=== PATIENT | female | born 1940 | race Caucasian/White ===

== ENCOUNTER 2017-06-22 17:55 | Emergency (ER) | payer OTHER ==
[~2017-06-22] VITALS: Ht 162.6 cm; Wt 54.4 kg
[~2017-06-22 17:55] MED LIST: ACET325 PO; ALBU.083IS; ALBU3IS INH; ALBU90OI61 INH; AMLO10 PO; ASPI81CH PO; ATOR10; AZIT250 PO; AZIT500 PO; Amlodipine Besy10 MG PO; BUDE.5 INH; BUDE200IP INH; CARV6.25 PO; CHOL10002 PO; CIME400; CLOP75 PO; Cardizem CD 24240 MG PO; Cipro500 MG PO; DELTASONE20 MG PO; DILT180; DOXA1; FLUSAL2505; FLUSAL2505 IH; FLUT1DIS5 INH; FURO20; FURO20 PO; IBUP600 PO; IBUP800; IPRAIS; Ipratr-Albuterol3 ML INH; LEVFLO500 PO; LISI20; LISI20 PO; LISI5; LISI5 PO; Lisinopril2.5 MG PO; Lovastatin20 MG PO; META800 PO; METF500C; METH5; METO25ER; METO50ER; METO50ER PO; NAPR500; NEBULIZ; NICO21TP; OXYACE5T; OXYC40ER; OXYC40ER PO; OXYC5 PO; PANT40 PO; POTA10T PO; POTA8 PO; POTCHL10ER; POTCHL10ER PO; PRED10 PO; PRED20 PO; PROACE100; Pedi-Dri 100,0060 GM TOP; Prinivil10 MG PO; SERT100; SERT100 PO; SERT25; SIMV10 PO; TRAM50 PO; VALD20 PO; VITAMIN D50000 UNIT PO; Ventolin5 MG/1 ML IH; Ventolin5 MG/1 ML INH; Zofran Odt4 MG SL
[2017-06-22 18:30] LABS: BASOPHILS ABSOLUTE AUTO 0.02 K/mm3 (0.00-0.23); BASOPHILS PERCENT AUTO 0 % (0-2); EOSINOPHILS ABSOLUTE AUTO 0.26 K/mm3 (0.00-0.68); EOSINOPHILS PERCENT AUTO 3 % (0-6); Hematocrit 38.5 % (33.0-51.0); Hemoglobin 13.3 g/dL (11.5-16.0); IMMATURE GRAN ABSOLUTE AUTO 0.01 K/mm3 (0.00-0.10); IMMATURE GRAN PERCENT AUTO 0 % (0-1); LYMPHOCYTES ABSOLUTE AUTO 2.47 K/mm3 (0.84-5.20); LYMPHOCYTES PERCENT AUTO 29 % (21-46); MONOCYTES ABSOLUTE AUTO 0.76 K/mm3 (0.16-1.47); MONOCYTES PERCENT AUTO 9 % (4-13); Mean Corpuscular HGB 29.2 pg (26.0-34.0); Mean Corpuscular HGB Conc 34.5 g/dL (31.5-36.5); Mean Corpuscular Volume 85 fL (80-100); Mean Platelet Volume 9.1 fL (9.1-12.4); NEUTROPHILS ABSOLUTE AUTO 5.14 K/mm3 (1.96-9.15); NEUTROPHILS PERCENT AUTO 59 % (41-73); Platelet Count 286 K/mm3 (150-400); RDW Coefficient Variation 13.9 % (11.7-14.2); RDW Standard Deviation 42.7 fL (35.1-46.3); Red Blood Cell Count 4.55 M/mm3 (3.80-5.20); White Blood Cell Count 8.66 K/mm3 (4.00-11.30)
[2017-06-22 18:45] LABS: International Normalized Ratio 1.03; Prothrombin Time Results 10.7 Sec (9.7-11.5)
[2017-06-22 18:50] LABS: Alanine Aminotransfer (ALT/SGP 13 U/L (12-78); Albumin, Blood 2.8 g/dL (3.4-5.0); Albumin/Globulin Ratio 0.7 (0.8-1.8); Alk Phos 91 U/L (50-136); Anion Gap 7 mmol/L (6-16); Aspartate Aminotrans (AST/SGOT 12 U/L (12-37); Bilirubin, Total 0.4 mg/dL (0.1-1.0); Blood Urea Nitrogen 11 mg/dL (8-24); Bun/Creatinine Ratio 25.2 (12.0-20.0); CO2, Blood 27 mmol/L (21-32); Calcium, Blood 8.8 mg/dL (8.5-10.1); Chloride, Blood 99 mmol/L (98-108); Creatinine, Blood 0.44 mg/dL (0.40-1.00); Globulin, Blood 3.9 g/dL (2.2-4.0); Glomerular Filtration Rate >60 (60-); Glucose, Blood 121 mg/dL (70-99); Potassium, Blood 4.2 mmol/L (3.5-5.5); Sodium, Blood 133 mmol/L (136-145); Total Protein, Blood 6.7 g/dL (6.4-8.2); Troponin I <0.015 ng/mL (0.000-0.040)
[2017-06-22] MEDS ORDERED: LEVO750 PO (19:49)
[2018-05-11] MEDS ORDERED: Zithromax250 MG PO (20:26)
[2018-05-11] MEDS ORDERED: Prednisone50 MG PO (20:26)
== END 2017-06-22 20:41 | disposition home or self-care (01) ==
LOC: ER 17:55
PROVIDERS: Emergency Medicine
DX: J18.9 Pneumonia, unspecified organism (principal); Z88.0 Allergy status to penicillin; Z88.2 Allergy status to sulfonamides; Z79.899 Other long term (current) drug therapy; Z79.82 Long term (current) use of aspirin; Z79.2 Long term (current) use of antibiotics; I10 Essential (primary) hypertension; J44.9 Chronic obstructive pulmonary disease, unspecified; F17.200 Nicotine dependence, unspecified, uncomplicated
CPT/HCPCS: 71046; 80053; 83880; 84484; 85025; 85610; 85730; 93005; 93010; 94640; 96365; 96375; 99283; J1100; J1956

== ENCOUNTER 2017-06-30 15:03 | Inpatient (IN) | payer OTHER ==
[~2017-06-30] VITALS: Ht 162.6 cm; Wt 51.4 kg
[~2017-06-30 15:03] MED LIST changes: +LEVO750 PO
[2017-06-30 17:54] LABS: BASOPHILS ABSOLUTE AUTO 0.03 K/mm3 (0.00-0.23); BASOPHILS PERCENT AUTO 0 % (0-2); EOSINOPHILS ABSOLUTE AUTO 0.36 K/mm3 (0.00-0.68); EOSINOPHILS PERCENT AUTO 4 % (0-6); Hematocrit 38.9 % (33.0-51.0); Mean Corpuscular HGB 28.4 pg (26.0-34.0); Mean Corpuscular HGB Conc 33.4 g/dL (31.5-36.5); Mean Corpuscular Volume 85 fL (80-100); Mean Platelet Volume 9.3 fL (9.1-12.4); Platelet Count 297 K/mm3 (150-400); RDW Coefficient Variation 13.8 % (11.7-14.2); RDW Standard Deviation 43.2 fL (35.1-46.3); Red Blood Cell Count 4.57 M/mm3 (3.80-5.20); White Blood Cell Count 8.14 K/mm3 (4.00-11.30)
[2017-06-30 17:58] LABS: IMMATURE GRAN ABSOLUTE AUTO 0.03 K/mm3 (0.00-0.10); IMMATURE GRAN PERCENT AUTO 0 % (0-1); LYMPHOCYTES ABSOLUTE AUTO 2.78 K/mm3 (0.84-5.20); LYMPHOCYTES PERCENT AUTO 34 % (21-46); MONOCYTES PERCENT AUTO 10 % (4-13); NEUTROPHILS ABSOLUTE AUTO 4.14 K/mm3 (1.96-9.15); NEUTROPHILS PERCENT AUTO 51 % (41-73)
[2017-06-30 18:06] LABS: Alanine Aminotransfer (ALT/SGP 12 U/L (12-78); Albumin, Blood 2.9 g/dL (3.4-5.0); Albumin/Globulin Ratio 0.8 (0.8-1.8); Alk Phos 90 U/L (50-136); Anion Gap 8 mmol/L (6-16); Aspartate Aminotrans (AST/SGOT 11 U/L (12-37); Bilirubin, Total 0.4 mg/dL (0.1-1.0); Blood Urea Nitrogen 8 mg/dL (8-24); CO2, Blood 26 mmol/L (21-32); Calcium, Blood 8.8 mg/dL (8.5-10.1); Chloride, Blood 99 mmol/L (98-108); Creatinine, Blood 0.44 mg/dL (0.40-1.00); Globulin, Blood 3.8 g/dL (2.2-4.0); Glomerular Filtration Rate >60 (60-); Glucose, Blood 107 mg/dL (70-99); Potassium, Blood 3.8 mmol/L (3.5-5.5); Sodium, Blood 133 mmol/L (136-145); Total Protein, Blood 6.7 g/dL (6.4-8.2)
[2017-07-02 05:14] LABS: BASOPHILS ABSOLUTE AUTO 0.01 K/mm3 (0.00-0.23); BASOPHILS PERCENT AUTO 0 % (0-2); EOSINOPHILS PERCENT AUTO 0 % (0-6); Hematocrit 35.1 % (33.0-51.0); Hemoglobin 11.6 g/dL (11.5-16.0); IMMATURE GRAN ABSOLUTE AUTO 0.06 K/mm3 (0.00-0.10); IMMATURE GRAN PERCENT AUTO 1 % (0-1); LYMPHOCYTES ABSOLUTE AUTO 2.16 K/mm3 (0.84-5.20); LYMPHOCYTES PERCENT AUTO 17 % (21-46); MONOCYTES ABSOLUTE AUTO 0.97 K/mm3 (0.16-1.47); MONOCYTES PERCENT AUTO 8 % (4-13); Mean Corpuscular Volume 85 fL (80-100); Mean Platelet Volume 9.5 fL (9.1-12.4); NEUTROPHILS ABSOLUTE AUTO 9.45 K/mm3 (1.96-9.15); NEUTROPHILS PERCENT AUTO 75 % (41-73); Platelet Count 308 K/mm3 (150-400); RDW Coefficient Variation 13.9 % (11.7-14.2); RDW Standard Deviation 42.8 fL (35.1-46.3); Red Blood Cell Count 4.14 M/mm3 (3.80-5.20); White Blood Cell Count 12.65 K/mm3 (4.00-11.30)
[2017-07-02 05:41] LABS: Anion Gap 8 mmol/L (6-16); Blood Urea Nitrogen 19 mg/dL (8-24); Bun/Creatinine Ratio 37.3 (12.0-20.0); CO2, Blood 26 mmol/L (21-32); Calcium, Blood 8.8 mg/dL (8.5-10.1); Chloride, Blood 100 mmol/L (98-108); Creatinine, Blood 0.51 mg/dL (0.40-1.00); Glomerular Filtration Rate >60 (60-); Glucose, Blood 144 mg/dL (70-99); Potassium, Blood 4.5 mmol/L (3.5-5.5); Sodium, Blood 134 mmol/L (136-145)
[2017-07-03 06:24] LABS: BASOPHILS ABSOLUTE AUTO 0.01 K/mm3 (0.00-0.23); BASOPHILS PERCENT AUTO 0 % (0-2); EOSINOPHILS ABSOLUTE AUTO 0.01 K/mm3 (0.00-0.68); EOSINOPHILS PERCENT AUTO 0 % (0-6); Hematocrit 35.7 % (33.0-51.0); Hemoglobin 11.7 g/dL (11.5-16.0); IMMATURE GRAN ABSOLUTE AUTO 0.04 K/mm3 (0.00-0.10); IMMATURE GRAN PERCENT AUTO 0 % (0-1); LYMPHOCYTES ABSOLUTE AUTO 2.23 K/mm3 (0.84-5.20); LYMPHOCYTES PERCENT AUTO 19 % (21-46); MONOCYTES ABSOLUTE AUTO 0.69 K/mm3 (0.16-1.47); MONOCYTES PERCENT AUTO 6 % (4-13); Mean Corpuscular HGB 27.9 pg (26.0-34.0); Mean Corpuscular HGB Conc 32.8 g/dL (31.5-36.5); Mean Corpuscular Volume 85 fL (80-100); Mean Platelet Volume 9.6 fL (9.1-12.4); NEUTROPHILS ABSOLUTE AUTO 8.51 K/mm3 (1.96-9.15); NEUTROPHILS PERCENT AUTO 74 % (41-73); Platelet Count 294 K/mm3 (150-400); RDW Standard Deviation 43.5 fL (35.1-46.3); White Blood Cell Count 11.49 K/mm3 (4.00-11.30)
[2017-07-05 06:03] LABS: BASOPHILS ABSOLUTE AUTO 0.01 K/mm3 (0.00-0.23); BASOPHILS PERCENT AUTO 0 % (0-2); EOSINOPHILS ABSOLUTE AUTO 0.02 K/mm3 (0.00-0.68); EOSINOPHILS PERCENT AUTO 0 % (0-6); Hematocrit 39.3 % (33.0-51.0); IMMATURE GRAN ABSOLUTE AUTO 0.06 K/mm3 (0.00-0.10); IMMATURE GRAN PERCENT AUTO 1 % (0-1); LYMPHOCYTES ABSOLUTE AUTO 2.72 K/mm3 (0.84-5.20); LYMPHOCYTES PERCENT AUTO 24 % (21-46); MONOCYTES ABSOLUTE AUTO 0.74 K/mm3 (0.16-1.47); MONOCYTES PERCENT AUTO 7 % (4-13); Mean Corpuscular HGB 27.8 pg (26.0-34.0); Mean Corpuscular HGB Conc 33.1 g/dL (31.5-36.5); Mean Corpuscular Volume 84 fL (80-100); Mean Platelet Volume 9.4 fL (9.1-12.4); NEUTROPHILS ABSOLUTE AUTO 7.89 K/mm3 (1.96-9.15); NEUTROPHILS PERCENT AUTO 69 % (41-73); Platelet Count 327 K/mm3 (150-400); RDW Coefficient Variation 13.8 % (11.7-14.2); RDW Standard Deviation 42.6 fL (35.1-46.3); Red Blood Cell Count 4.67 M/mm3 (3.80-5.20); White Blood Cell Count 11.44 K/mm3 (4.00-11.30)
[2017-07-05 06:32] LABS: Anion Gap 9 mmol/L (6-16); Blood Urea Nitrogen 18 mg/dL (8-24); Bun/Creatinine Ratio 42.3 (12.0-20.0); CO2, Blood 25 mmol/L (21-32); Calcium, Blood 8.5 mg/dL (8.5-10.1); Chloride, Blood 97 mmol/L (98-108); Creatinine, Blood 0.43 mg/dL (0.40-1.00); Glomerular Filtration Rate >60 (60-); Glucose, Blood 94 mg/dL (70-99); Potassium, Blood 4.4 mmol/L (3.5-5.5); Sodium, Blood 131 mmol/L (136-145)
[2017-07-05] MEDS ORDERED: BUDE.5 NEB (10:56)
[2017-07-05] MEDS ORDERED: GUAIFENESIN1200 MG PO (10:56)
[2017-07-05] MEDS ORDERED: LEVO750 PO (10:59)
[2017-07-05] MEDS ORDERED: PRED20 PO (10:59)
[2017-07-05] MEDS ORDERED: DULERA 100 MCG/13 GM INH (11:00)
[2018-05-11] MEDS ORDERED: Prednisone50 MG PO (20:26)
[2018-05-11] MEDS ORDERED: Zithromax250 MG PO (20:26)
== END 2017-07-05 16:31 | disposition home or self-care (01) | DRG 189 ==
LOC: ER 15:03 → MEDS 19:50 → ENPENDDIS 07-05 10:00 → MEDS 07-05 16:31
PROVIDERS: Emergency Medicine; Hospitalist; Internal Medicine; Internal Medicine Pulmonary Disease
DX: J96.21 Acute and chronic respiratory failure with hypoxia (principal); J18.9 Pneumonia, unspecified organism; J44.0 Chronic obstructive pulmonary disease with (acute) lower respiratory infection; E87.1 Hypo-osmolality and hyponatremia; T17.990A Other foreign object in respiratory tract, part unspecified in causing asphyxiation, initial encounter; Z99.81 Dependence on supplemental oxygen; J44.1 Chronic obstructive pulmonary disease with (acute) exacerbation; J98.11 Atelectasis; J96.22 Acute and chronic respiratory failure with hypercapnia; F17.210 Nicotine dependence, cigarettes, uncomplicated; I10 Essential (primary) hypertension; E78.00 Pure hypercholesterolemia, unspecified; R73.9 Hyperglycemia, unspecified; R91.1 Solitary pulmonary nodule; Z86.73 Personal history of transient ischemic attack (TIA), and cerebral infarction without residual deficits; Z79.82 Long term (current) use of aspirin; Z79.899 Other long term (current) drug therapy; Z88.0 Allergy status to penicillin; Z88.2 Allergy status to sulfonamides
CPT/HCPCS: 36415; 71045; 71046; 71260; 80048; 80053; 82947; 83605; 84145; 85025; 87040; 87070; 87205; 94010; 94640; 94664; 94667; 94760; 94762; 96365; 98960; 99285; 99407; J0696; J1650; J1956; J7030; J7120; Q9967

== ENCOUNTER 2018-05-27 23:40 | Emergency (ER) | payer OTHER ==
[~2018-05-27] VITALS: Ht 157.5 cm; Wt 40.8 kg
[~2018-05-27 23:40] MED LIST changes: +BUDE.5 NEB; +DULERA 100 MCG/13 GM INH; +GUAIFENESIN1200 MG PO; +Prednisone50 MG PO; +Zithromax250 MG PO
[2018-05-28 00:47] LABS: BASOPHILS ABSOLUTE AUTO 0.03 K/mm3 (0.00-0.23); BASOPHILS PERCENT AUTO 0 % (0-2); EOSINOPHILS PERCENT AUTO 3 % (0-6); Hematocrit 38.7 % (33.0-51.0); Hemoglobin 12.5 g/dL (11.5-16.0); IMMATURE GRAN ABSOLUTE AUTO 0.01 K/mm3 (0.00-0.10); IMMATURE GRAN PERCENT AUTO 0 % (0-1); LYMPHOCYTES ABSOLUTE AUTO 1.48 K/mm3 (0.84-5.20); LYMPHOCYTES PERCENT AUTO 22 % (21-46); MONOCYTES ABSOLUTE AUTO 0.49 K/mm3 (0.16-1.47); MONOCYTES PERCENT AUTO 7 % (4-13); Mean Corpuscular HGB 28.7 pg (26.0-34.0); Mean Corpuscular HGB Conc 32.3 g/dL (31.5-36.5); Mean Corpuscular Volume 89 fL (80-100); Mean Platelet Volume 9.4 fL (9.1-12.4); NEUTROPHILS ABSOLUTE AUTO 4.58 K/mm3 (1.96-9.15); NEUTROPHILS PERCENT AUTO 68 % (41-73); Platelet Count 210 K/mm3 (150-400); RDW Coefficient Variation 13.9 % (11.7-14.2); RDW Standard Deviation 45.2 fL (35.1-46.3); Red Blood Cell Count 4.36 M/mm3 (3.80-5.20); White Blood Cell Count 6.79 K/mm3 (4.00-11.30)
[2018-05-28 01:00] LABS: Alanine Aminotransfer (ALT/SGP 15 U/L (12-78); Albumin, Blood 3.1 g/dL (3.4-5.0); Albumin/Globulin Ratio 0.8 (0.8-1.8); Alk Phos 96 U/L (50-136); Anion Gap 7 mmol/L (6-16); Aspartate Aminotrans (AST/SGOT 7 U/L (12-37); Bilirubin, Total 0.4 mg/dL (0.1-1.0); Blood Urea Nitrogen 9 mg/dL (8-24); Bun/Creatinine Ratio 26.5 (12.0-20.0); CO2, Blood 32 mmol/L (21-32); Calcium, Blood 8.5 mg/dL (8.5-10.1); Chloride, Blood 96 mmol/L (98-108); Creatinine, Blood 0.34 mg/dL (0.40-1.00); Globulin, Blood 3.7 g/dL (2.2-4.0); Glomerular Filtration Rate >60 (60-); Glucose, Blood 91 mg/dL (70-99); Potassium, Blood 3.6 mmol/L (3.5-5.5); Sodium, Blood 135 mmol/L (136-145); Total Protein, Blood 6.8 g/dL (6.4-8.2)
[2018-05-28] MEDS ORDERED: DEXA4 PO (01:21)
[2018-05-28] MEDS ORDERED: LEVFLO500 PO (01:21)
[2018-05-29] MEDS ORDERED: DEXA2 PO (19:45)
== END 2018-05-28 02:20 | disposition home or self-care (01) ==
LOC: ER 23:40
PROVIDERS: Emergency Medicine
DX: J44.1 Chronic obstructive pulmonary disease with (acute) exacerbation (principal); I10 Essential (primary) hypertension; F17.210 Nicotine dependence, cigarettes, uncomplicated; Z88.0 Allergy status to penicillin; Z88.2 Allergy status to sulfonamides; Z79.899 Other long term (current) drug therapy; Z79.82 Long term (current) use of aspirin; Z79.52 Long term (current) use of systemic steroids; Z86.73 Personal history of transient ischemic attack (TIA), and cerebral infarction without residual deficits
CPT/HCPCS: 71045; 80053; 85025; 93005; 93010; 94640; 96365; 96375; 99285-25; J1100; J1956

== ENCOUNTER 2018-05-29 17:05 | Emergency (ER) | payer OTHER ==
[~2018-05-29] VITALS: Ht 157.5 cm; Wt 49.9 kg
[~2018-05-29 17:05] MED LIST changes: +DEXA4 PO
[2018-05-29 17:31] LABS: BASOPHILS ABSOLUTE AUTO 0.02 K/mm3 (0.00-0.23); BASOPHILS PERCENT AUTO 0 % (0-2); EOSINOPHILS ABSOLUTE AUTO 0.03 K/mm3 (0.00-0.68); EOSINOPHILS PERCENT AUTO 0 % (0-6); Hematocrit 42.1 % (33.0-51.0); Hemoglobin 13.7 g/dL (11.5-16.0); IMMATURE GRAN ABSOLUTE AUTO 0.02 K/mm3 (0.00-0.10); IMMATURE GRAN PERCENT AUTO 0 % (0-1); LYMPHOCYTES ABSOLUTE AUTO 1.82 K/mm3 (0.84-5.20); LYMPHOCYTES PERCENT AUTO 26 % (21-46); MONOCYTES ABSOLUTE AUTO 0.82 K/mm3 (0.16-1.47); MONOCYTES PERCENT AUTO 12 % (4-13); Mean Corpuscular HGB 28.7 pg (26.0-34.0); Mean Corpuscular HGB Conc 32.5 g/dL (31.5-36.5); Mean Corpuscular Volume 88 fL (80-100); Mean Platelet Volume 9.2 fL (9.1-12.4); NEUTROPHILS ABSOLUTE AUTO 4.35 K/mm3 (1.96-9.15); NEUTROPHILS PERCENT AUTO 62 % (41-73); Platelet Count 226 K/mm3 (150-400); RDW Standard Deviation 45.4 fL (35.1-46.3); Red Blood Cell Count 4.78 M/mm3 (3.80-5.20); White Blood Cell Count 7.06 K/mm3 (4.00-11.30)
[2018-05-29 17:59] LABS: Troponin I <0.015 ng/mL (0.000-0.040)
[2018-05-29 18:01] LABS: Alanine Aminotransfer (ALT/SGP 19 U/L (12-78); Albumin, Blood 3.9 g/dL (3.4-5.0); Alk Phos 105 U/L (50-136); Anion Gap 6 mmol/L (6-16); Aspartate Aminotrans (AST/SGOT 13 U/L (12-37); Bilirubin, Total 0.4 mg/dL (0.1-1.0); Blood Urea Nitrogen 9 mg/dL (8-24); Bun/Creatinine Ratio 25.6 (12.0-20.0); CO2, Blood 32 mmol/L (21-32); Calcium, Blood 9.3 mg/dL (8.5-10.1); Chloride, Blood 88 mmol/L (98-108); Creatinine, Blood 0.35 mg/dL (0.40-1.00); Globulin, Blood 3.9 g/dL (2.2-4.0); Glomerular Filtration Rate >60 (60-); Glucose, Blood 95 mg/dL (70-99); Potassium, Blood 3.9 mmol/L (3.5-5.5); Sodium, Blood 126 mmol/L (136-145); Total Protein, Blood 7.8 g/dL (6.4-8.2)
[2018-05-29] MEDS ORDERED: DEXA2 PO (19:45)
[2018-05-30] MEDS ORDERED: ALBU90OI61 INH (16:05)
[2018-05-30] MEDS ORDERED: TIOT18 INH (16:06)
== END 2018-05-29 20:15 | disposition home or self-care (01) ==
LOC: ER 17:05
PROVIDERS: Emergency Medicine
DX: J44.1 Chronic obstructive pulmonary disease with (acute) exacerbation (principal); I10 Essential (primary) hypertension; J44.9 Chronic obstructive pulmonary disease, unspecified; Z86.73 Personal history of transient ischemic attack (TIA), and cerebral infarction without residual deficits; Z88.0 Allergy status to penicillin; Z88.2 Allergy status to sulfonamides; Z79.899 Other long term (current) drug therapy; Z79.82 Long term (current) use of aspirin; Z79.52 Long term (current) use of systemic steroids; Z79.1 Long term (current) use of non-steroidal anti-inflammatories (NSAID); F17.200 Nicotine dependence, unspecified, uncomplicated
CPT/HCPCS: 36415; 71046; 80053; 83880; 84484; 85025; 93005; 93010; 94640; 99285-25

== ENCOUNTER 2018-05-30 13:35 | Inpatient (IN) | payer OTHER ==
[~2018-05-30] VITALS: Ht 152.4 cm; Wt 40.7 kg
[~2018-05-30 13:35] MED LIST changes: +DEXA2 PO
[2018-05-30 14:14] LABS: BASOPHILS ABSOLUTE AUTO 0.01 K/mm3 (0.00-0.23); BASOPHILS PERCENT AUTO 0 % (0-2); EOSINOPHILS ABSOLUTE AUTO 0.08 K/mm3 (0.00-0.68); EOSINOPHILS PERCENT AUTO 1 % (0-6); Hematocrit 44.7 % (33.0-51.0); Hemoglobin 14.9 g/dL (11.5-16.0); IMMATURE GRAN ABSOLUTE AUTO 0.02 K/mm3 (0.00-0.10); IMMATURE GRAN PERCENT AUTO 0 % (0-1); LYMPHOCYTES ABSOLUTE AUTO 2.41 K/mm3 (0.84-5.20); LYMPHOCYTES PERCENT AUTO 33 % (21-46); MONOCYTES ABSOLUTE AUTO 0.91 K/mm3 (0.16-1.47); MONOCYTES PERCENT AUTO 12 % (4-13); Mean Corpuscular HGB 28.5 pg (26.0-34.0); Mean Corpuscular HGB Conc 33.3 g/dL (31.5-36.5); Mean Corpuscular Volume 86 fL (80-100); Mean Platelet Volume 9.3 fL (9.1-12.4); NEUTROPHILS ABSOLUTE AUTO 3.98 K/mm3 (1.96-9.15); NEUTROPHILS PERCENT AUTO 54 % (41-73); Platelet Count 277 K/mm3 (150-400); RDW Coefficient Variation 14.1 % (11.7-14.2); Red Blood Cell Count 5.22 M/mm3 (3.80-5.20); White Blood Cell Count 7.41 K/mm3 (4.00-11.30)
[2018-05-30 14:37] LABS: Alanine Aminotransfer (ALT/SGP 23 U/L (12-78); Albumin, Blood 3.7 g/dL (3.4-5.0); Albumin/Globulin Ratio 0.9 (0.8-1.8); Alk Phos 107 U/L (50-136); Anion Gap 9 mmol/L (6-16); Aspartate Aminotrans (AST/SGOT 22 U/L (12-37); Bilirubin, Total 0.6 mg/dL (0.1-1.0); Blood Urea Nitrogen 9 mg/dL (8-24); Bun/Creatinine Ratio 31.7 (12.0-20.0); CO2, Blood 34 mmol/L (21-32); Calcium, Blood 9.1 mg/dL (8.5-10.1); Chloride, Blood 86 mmol/L (98-108); Creatinine, Blood 0.28 mg/dL (0.40-1.00); Globulin, Blood 4.2 g/dL (2.2-4.0); Glomerular Filtration Rate >60 (60-); Glucose, Blood 110 mg/dL (70-99); Potassium, Blood 3.6 mmol/L (3.5-5.5); Sodium, Blood 129 mmol/L (136-145); Total Protein, Blood 7.9 g/dL (6.4-8.2)
[2018-05-30] MEDS ORDERED: ALBU90OI61 INH (16:05)
[2018-05-30] MEDS ORDERED: TIOT18 INH (16:06)
[2018-05-31 04:36] LABS: Anion Gap 8 mmol/L (6-16); Blood Urea Nitrogen 14 mg/dL (8-24); Bun/Creatinine Ratio 42.2 (12.0-20.0); CO2, Blood 31 mmol/L (21-32); Calcium, Blood 8.3 mg/dL (8.5-10.1); Chloride, Blood 94 mmol/L (98-108); Creatinine, Blood 0.33 mg/dL (0.40-1.00); Glomerular Filtration Rate >60 (60-); Glucose, Blood 100 mg/dL (70-99); Potassium, Blood 3.5 mmol/L (3.5-5.5); Sodium, Blood 133 mmol/L (136-145)
--- NOTE | 2018-05-31 05:56 | NUR ---
PATIENT UPDATE PATIENT REPORT COMPLETED TO GEOVANI BETANCUR. PT ARRIVED TO PCU ALERT AND ORIENTED X 3 AND REMAINED SO T/O SHIFT. SHE WAS PLEASANT AND COOPERATIVE WITH VITALS AND ASSESSMENTS. PT SLEPT WELL T/O SHFIT WITH NO ACUTE CHANGES NOTED TO VITALS, SHE IS ON BIPAP AT THIS TIME, BUT TOLERATES SHORT BREAKS. SHE REMAINS SOB WITH EXERTION. PT DENIED ANY COMPLAINT SO PAIN OR UNMET NEEDS.
--- NOTE | 2018-05-31 19:57 | NUR ---
end of shift pt has had no changes to the assessment, vss, pt is doing much better with breathing, pt is able to handle being off the bipap for breaks lasting one hour
--- NOTE | 2018-06-01 06:30 | NUR ---
SHIFT SUMMARY PATIENT PLEASENT AND COOPERATIVE LAST NIGHT. PATIENT APPEARED TO SLEEP WELL THROUGHOUT THE NIGHT. PATIENT USED HER BIPAP MOST OF THE NIGHT WELL. HOWEVER, PATIENT DID TAKE SEVERAL SHORT BREAKS FROM THE BIPAP. VITAL SIGNS CHARTED. WILL CONTINUE TO MONITOR PATIENT AND REPORT TO ONCOMING RN.
--- NOTE | 2018-06-01 19:20 | NUR ---
END OF SHIFT PT HAS HAD NO CHANGES, VSS, PT HAS WORN THE BIPAP LESS TODAY
--- NOTE | 2018-06-02 06:34 | NUR ---
SHIFT SUMMARY PATIENT PLEASENT AND COOPERATIVE THROUGHOUT THE NIGHT. PATIENT APPEARED TO SLEEP WELL FOR MOST OF THE NIGHT. PATIENT USED THE BIPAP FOR MOST OF THE NIGHT WELL. PATIENT ONLY TOOK A FEW SHORT BREAKS FROM THE BIPAP LAST NIGHT. VITAL SIGNS CHARTED. WILL CONTINUE TO MONITOR PATIENT AND REPORT TO ONCOMING RN.
--- NOTE | 2018-06-02 08:00 | NUR ---
PT LAYING IN BED AWAKE A/OX3, SEEMS IRRITABLE, STATS SHE DIDN'T REALLY SLEEP WELL, LUNGS ARE COURSE T/O, RESP EVEN AND UNLABORED, NO COUGH NOTED BUT REPORTS PRODUCTIVE COUGH OF YELLOW SPUTUM, IS CURRENTLY ON N/C, HRR, NO EDEMA NOTED, PPP+1, CAP REFILL <3SEC, VS STABLE, AFEBRILE, IV SITES ARE CLAER AND PATENT, BTX4, ABD FLAT SOFT NONTENDER, VOIDS VIA BEDPAN, SKIN C/W/D, MAEW, VERY WEAK, ARASELI, CALL LIGHT IN REACH.
--- NOTE | 2018-06-02 12:55 | NUR ---
pt was very congested, and having some trouble breathing, placed her on the bipap, she is not really cooperating well. took some encouragement to get her to leave it on. pulled off her breathing tx and iv found mostly out of her arm. placed new 20g to rfa without diff, x1 attempt with good blood return, pt tolerated it well. she states she is doing better now and is ready to eat lunch. placed her back on n/c, she wouldn't allow this nurse to open her containers or cut up her meat. call light in reach.
--- NOTE | 2018-06-02 18:03 | NUR ---
pt had one episode of resp distress this am, did well on the bipap. has been breathing better this afternoon and evening. poor appetite. call light in reach.
--- NOTE | 2018-06-03 06:07 | NUR ---
SHIFT SUMMARY PT ALERT AND ORIENTED. VS STABLE. PT STAYED ON BIPAP MOST OF SHIFT. PT RESTED MOST OF SHIFT. 02 SATS REMAINED ABOVE 92% ON BIPAP. LS WHEEZES IN THE UPPERS AND COARSE CRACKLES IN THE LOWERS. PT DENIES ANY PAIN. PT USED THE BEDPAN MULTIPLE TIMES TO VOID. SHE STATES SHE IS TOO WEAK AT NIGHT TO USE THE BSC. NO CHANGES SINCE INITIAL ASSESSMENT. WILL CONTINUE TO MONITOR AND REPORT TO ONCOMING RN. CALL LIGHT IN REACH.
--- NOTE | 2018-06-03 12:19 | NUR ---
PT LAYING IN BED WITH BIPAP IN PLACE, STATES SHE DOESN'T FEEL GOOD. SHE IS A/OX3, SOMETIMES COOPERATIVE WTIH CARE, BUT TENDS TO FIGHT CARE AT TIMES, SHE SEEMS TO HAVE VERY LITTLE ABILITY TO COPE, LUNGS ARE COURSE T/O, RESP EVEN AND UNLABORED, HAS A HARSH PRODUCTIVE AT TIMES COUGH, THICK YELLOW SPUTUM, IS REQUIRING 4 LITERS 02 VIA N/C TO KEEP SATS IN THE 90'S. HRR, NO EDEMA NOTED, PPP+2, CAP REFILL <3SEC, VS STABLE, AFEBRILE, IV SITE TO RFA SITE IS CLEAR AND PATENT, BTX4, ABD FLAT SOFT NONTENDER, VOIDS VIA BEDPAN, REFUSES TO GET OOB, HAS ATTENDS IN PLACE, SKIN C/W/D, MAEW, PROFOUNDLY WEAK, ARASELI, CALL LIGHT IN REACH.
--- NOTE | 2018-06-03 13:30 | NUR ---
pt was very sob, sitting herself up in bed, in speaking with her she will just say she doesn't feel good. offered her to get into chair and out of the bed, she adimantly refused. call light in reach.
--- NOTE | 2018-06-03 18:14 | NUR ---
pt was soaked in the bed this early evening. offered to get her up, she said no. explained we have to change and clean the bed, she is resistant to any efforts to care for her, she recieved a bed bath, tried to talk with her about how she is doing at home, she said she isn't functioning, but hasn't been in bed very long. went to put nonskid socks on her she yelled about having them on, explained we are getting her up on a slick floor and she must, after putting them on she was ok with it. gave her a warm blanket in the chair, she was able to stand and transfer over to chair with one person assist, housekeeping came in and cleaned the bed. placed an egg create on it for extra cushining, because she is so thin and bony. also placed a preventative dressing on her coccyx as she is at risk of breakdown, and skin is pink. she was assisted back to bed after eating dinner. call light in reach.
--- NOTE | 2018-06-04 06:02 | NUR ---
SHIFT SUMMARY PT ALERT AND ORIENTED. VITAL SIGNS STABLE. PT WAS ON BIPAP MOST OF SHIFT WITH SATS >92%. PT ANXIOUS AT TIMES. NO ACUTE CHANGES SINCE INITIAL ASSESSMENT. PT NEEDS FREQUENT ENCOURAGEMENT TO AMBULATE TO BSC. WILL CONTINUE TO MONITOR AND REPORT TO ONCOMING RN. CALL LIGHT IN REACH.
--- NOTE | 2018-06-05 04:36 | NUR ---
SHIFT SUMMARY PT A&O X4, CALM AND COOPERATIVE W/ SOME ASPECTS OF CARE, AND IRRITABLE W/ OTHER ASPECTS SUCH MEDICATIONS AND REPOSITIONING. PT REFUSING REPOSITIONING, ABLE TO REPOSITION SELF IN BED, BUT STATES NOT WANTING TO MOVE. PT ENCOURAGED TO MAKE ADJUSTMENTS IN BED AND EDUCATED ABOUT RISKS OF SKIN BREAK DOWN. PT LUNG SOUNDS COARSE, SPO2 > 92% ON BIPAP. PT TOLERATING BIPAP WELL, WEARING BIPAP T/O NIGHT. PT PCU, NO TELE STATUS, HR 60'S-80'S. VSS. EGG CRATE ON BED TO HELP PREVENT SKIN BREAK DOWN. MEPILEX ON COCCYX. HEELS FLOATED. ATTENDS IN PLACE. WILL CONTINUE TO MONITOR AND PROVIDE CARE UNTIL REPORT OFF TO DAY SHIFT RN.
--- NOTE | 2018-06-05 17:19 | NUR ---
TRANSFER TO RM 358 REPORT CALLED TO RM 358 RN. PT AWARE OF TRANSFER. SHE WILL GO UP BY BED ACCOMPANIED BY [employer] TECHNICIAN'S. CONTINUE POT.
--- NOTE | 2018-06-05 18:49 | NUR ---
PT TRANSFERED TO ROOM AND SETTLED IN . AOX4 COOPERATIVE OF CARE AND CALLS APPROPRIATELY. NO DISTRESS NOTED AND WATCHING TV.
--- NOTE | 2018-06-05 19:59 | NUR ---
06/05/181954 IV IN RFA IS #20 GAUGE AND NOT #18. SITE FLUSHES WELL.
--- NOTE | 2018-06-06 05:36 | NUR ---
06/06/18 0535 RN CAME INTO ROOM TO GIVE AM MED AND SHE ACCUSED RN OF"STRAPPING ME DOWN AND I COULD NOT MOVE MY HANDS". PT HAS NEVER BEEN RESTRICTED IN MOVEMENT THIS SHIFT ONLY HAD BLANKETS OVER HER BODY AND ARMS PER C/O BEING "COLD". CALL MEJIA HAS BEEN WITHIN REACH ALL SHIFT. REASSURED HER THAT SHE WAS NEVER "STRAPPED DOWN". VITALS HAVE BEEN STABLE. VOIDING IN BED JUAREZ THREE TIMES AND THEN REPOSITIONED TO DIFFERENT SIDE WITH PILLOWS. CALL MEJIA WITHIN REACH AND ENCOURAGED TO CALL IF ANY NEEDS.
--- NOTE | 2018-06-06 17:17 | NUR ---
PATIENT STAYED IN BED THIS SHIFT. HER LUNGS ARE COURSE AND WHEEZY. ABLE TO HAVE A LARGE HARD BOWEL MOVEMENT WITH ASSISTANCE OF A SUPPOSITORY. COCCYX MEPLEX IN PLACE C/D/I. WHEN RN ASKED PATIENT HOW SHE AMBULATES AT HOME PATIENT WAS UNABLE TO ANSWER. WHEN RN ASKED PATIENT WHERE SHE LIVED PATIENT WAS UNSURE BUT STATES SHE LIVES WITH HER TWO CATS. PATIENT IS COOPERATIVE WITH CARE, ABLE TO ROLL WITH MIN ASSISTANCE. WILL CONTINUE TO MONITOR PATIENT. CALL LIGHT IS IN REACH, PATIENT CALLS FOR ASSISTANCE APPROPRIATELY
--- NOTE | 2018-06-06 22:54 | NUR ---
06/06/18 1925 INCONTINENT OF URINE AND BED LINEN CHANGED. JOE=CARE GIVEN. REFUSED CPAP MACHINE APPLIED TONIGHT. PULSE OXIMETER IN PLACE AND SATS = 95%. SOB NOTED WITH TALKING AND ACTIVITY.
[2018-06-07 05:02] LABS: BASOPHILS ABSOLUTE AUTO 0.01 K/mm3 (0.00-0.23); BASOPHILS PERCENT AUTO 0 % (0-2); EOSINOPHILS PERCENT AUTO 0 % (0-6); Hematocrit 41.3 % (33.0-51.0); Hemoglobin 13.7 g/dL (11.5-16.0); IMMATURE GRAN ABSOLUTE AUTO 0.03 K/mm3 (0.00-0.10); IMMATURE GRAN PERCENT AUTO 0 % (0-1); LYMPHOCYTES ABSOLUTE AUTO 2.06 K/mm3 (0.84-5.20); LYMPHOCYTES PERCENT AUTO 23 % (21-46); MONOCYTES ABSOLUTE AUTO 0.66 K/mm3 (0.16-1.47); MONOCYTES PERCENT AUTO 7 % (4-13); Mean Corpuscular HGB 28.5 pg (26.0-34.0); Mean Corpuscular HGB Conc 33.2 g/dL (31.5-36.5); Mean Corpuscular Volume 86 fL (80-100); Mean Platelet Volume 9.5 fL (9.1-12.4); NEUTROPHILS ABSOLUTE AUTO 6.19 K/mm3 (1.96-9.15); NEUTROPHILS PERCENT AUTO 69 % (41-73); Platelet Count 214 K/mm3 (150-400); RDW Coefficient Variation 13.6 % (11.7-14.2); RDW Standard Deviation 43.5 fL (35.1-46.3); Red Blood Cell Count 4.81 M/mm3 (3.80-5.20); White Blood Cell Count 8.95 K/mm3 (4.00-11.30)
[2018-06-07 05:27] LABS: Alanine Aminotransfer (ALT/SGP 15 U/L (12-78); Albumin, Blood 2.7 g/dL (3.4-5.0); Albumin/Globulin Ratio 0.8 (0.8-1.8); Alk Phos 79 U/L (50-136); Anion Gap 7 mmol/L (6-16); Aspartate Aminotrans (AST/SGOT 8 U/L (12-37); Bilirubin, Total 0.6 mg/dL (0.1-1.0); Blood Urea Nitrogen 16 mg/dL (8-24); Bun/Creatinine Ratio 50.3 (12.0-20.0); CO2, Blood 31 mmol/L (21-32); Calcium, Blood 8.5 mg/dL (8.5-10.1); Chloride, Blood 92 mmol/L (98-108); Creatinine, Blood 0.32 mg/dL (0.40-1.00); Globulin, Blood 3.5 g/dL (2.2-4.0); Glomerular Filtration Rate >60 (60-); Glucose, Blood 99 mg/dL (70-99); Magnesium, Blood 1.8 mg/dL (1.6-2.4); Potassium, Blood 4.7 mmol/L (3.5-5.5); Sodium, Blood 130 mmol/L (136-145); Total Protein, Blood 6.2 g/dL (6.4-8.2)
--- NOTE | 2018-06-07 17:43 | NUR ---
SHIFT SUMMARY PT HAS HAD NO ACUTE CHANGES THIS SHIFT, NO COMPLALINTS OF ANY KIND. PT BECOMES SOB AND DESATS W/ANY ACTIVITY, HOWEVER SAT AT SIDE OF BED BRIEFLY AND UP TO RECLINER FOR 30 MINS THIS SHIFT. PT IS BEDRESTING AT THIS TIME, WILL CONT TO MONITOR UNTIL REPORT GIVEN TO FARZAD BETANCUR.
[2018-06-08 04:52] LABS: BASOPHILS ABSOLUTE AUTO 0.01 K/mm3 (0.00-0.23); BASOPHILS PERCENT AUTO 0 % (0-2); EOSINOPHILS ABSOLUTE AUTO 0.01 K/mm3 (0.00-0.68); EOSINOPHILS PERCENT AUTO 0 % (0-6); Hematocrit 40.2 % (33.0-51.0); Hemoglobin 13.3 g/dL (11.5-16.0); IMMATURE GRAN ABSOLUTE AUTO 0.04 K/mm3 (0.00-0.10); IMMATURE GRAN PERCENT AUTO 0 % (0-1); LYMPHOCYTES ABSOLUTE AUTO 2.68 K/mm3 (0.84-5.20); LYMPHOCYTES PERCENT AUTO 25 % (21-46); MONOCYTES ABSOLUTE AUTO 1.31 K/mm3 (0.16-1.47); MONOCYTES PERCENT AUTO 12 % (4-13); Mean Corpuscular HGB 28.5 pg (26.0-34.0); Mean Corpuscular HGB Conc 33.1 g/dL (31.5-36.5); Mean Corpuscular Volume 86 fL (80-100); Mean Platelet Volume 9.6 fL (9.1-12.4); NEUTROPHILS ABSOLUTE AUTO 6.88 K/mm3 (1.96-9.15); NEUTROPHILS PERCENT AUTO 63 % (41-73); Platelet Count 243 K/mm3 (150-400); RDW Coefficient Variation 13.8 % (11.7-14.2); RDW Standard Deviation 42.9 fL (35.1-46.3); Red Blood Cell Count 4.66 M/mm3 (3.80-5.20); White Blood Cell Count 10.93 K/mm3 (4.00-11.30)
--- NOTE | 2018-06-08 04:52 | NUR ---
VSS, AFEBRILE, A/O, FORGETFUL/CONFUSED AT TIMES, 1PA TO BSC, MCGOVERN, 3LNC, CPAP @NOC, IV R FA, RED AREA ON COCCYX, COVERED BY DRESSING, NO OPEN AREAS NOTED, FRAIL, OT/PT WORKING WITH HER, PMHX: MEMORY LOSS, ETOH ABUSE, CVA, COPD. LIVES ALONE, PLACEMENT ISSUE. PT SLEPT WELL OVER NOC.
[2018-06-08 05:08] LABS: Alanine Aminotransfer (ALT/SGP 18 U/L (12-78); Albumin, Blood 2.7 g/dL (3.4-5.0); Albumin/Globulin Ratio 0.8 (0.8-1.8); Alk Phos 79 U/L (50-136); Anion Gap 5 mmol/L (6-16); Aspartate Aminotrans (AST/SGOT 9 U/L (12-37); Bilirubin, Total 0.5 mg/dL (0.1-1.0); Blood Urea Nitrogen 18 mg/dL (8-24); Bun/Creatinine Ratio 45.6 (12.0-20.0); CO2, Blood 32 mmol/L (21-32); Calcium, Blood 8.7 mg/dL (8.5-10.1); Chloride, Blood 93 mmol/L (98-108); Globulin, Blood 3.5 g/dL (2.2-4.0); Glomerular Filtration Rate >60 (60-); Glucose, Blood 76 mg/dL (70-99); Potassium, Blood 4.9 mmol/L (3.5-5.5); Sodium, Blood 130 mmol/L (136-145); Total Protein, Blood 6.2 g/dL (6.4-8.2)
--- NOTE | 2018-06-08 16:18 | NUR ---
Initial palliative care consult: Alix is a 77 year old with a history of COPD with home O2 use at 3l/min, HTN, CVA, ETOH, cerebral aneurysm. She lives alone with her cats. She states that she has a brother and sister in law who live in the area. Her brother is currently taking care of her cats while she is in the hospital. Alix states that she has a caregiver who comes for 3 hours a day to help clean her house. When asked if the caregiver prepped meals or assisted with ADLs, pt said that she didn't think so. She wanted to tell this insurance writer something and then said, "I can't remember what I was going to say." Pt appears to be alert and oriented but is forgetful. Pt states that she doesn't have any children. She denies pain and N/V at present. She c/o a productive cough, however she cannot tell me the sputum color. She becomes very SOB with exertion according to nursing. Pt got out of bed to the chair for lunch today which is more activity than she has done in the past few days. She states that she has to get up to the chair for dinner tonight. Her brother visited with her earlier and pt states that he plans to return tomorrow for another visit. Would be beneficial to have brother present for conversation with pt re: future care planning and code status. She is very guarded during my conversation with her today and doesn't answer questions with much more than yes/no answers. No requests at the time of my visit. Call light in pt's reach. Will plan to have PC follow up with pt and her brother tomorrow.
--- NOTE | 2018-06-08 18:26 | NUR ---
SHIFT SUMMARY PT HAS HAD NO ACUTE CHANGES THIS SHIFT, NO COMPLAINTS OF ANY KIND. PT WAS UP TO CHAIR FOR EVERY MEAL AND USING BSC THIS SHIFT. PT IS UP TO CHAIR EATING DINENR AT THIS TIME, WILL CONT TO MONITOR UNTIL REPORT GIVEN TO FARZAD BETANCUR.
--- NOTE | 2018-06-09 06:14 | NUR ---
SHIFT SUMMARY PT IS A&O X 2-3, AND OCCASIONALLY FORGETFUL. SHE DENIED ANY COMPLAINTS OF PAIN, NAUSEA OR SOB AND SLEPT WELL DURING THE NIGHT. VITAL SIGNS STABLE. NO ACUTE CHANGES NOTED IN PT CONDITION DURING THE NIGHT. WILL CONTINUE TO MONITOR AND TREAT PER EMAR UNTIL HAND OFF TO DAY SHIFT.
--- NOTE | 2018-06-09 18:21 | NUR ---
SHIFT SUMMARY PATIENT WORKED WITH OCCUPATIONAL THERAPY AND PHYSICAL THERAPY TODAY. WORRIED THAT THE PATIENT MAY BECOME FAILURE TO THRIVE. SHE DOES HAVE MEMORY ISSUES AND STRUGGLES WITH SHORT TERM MEMORY. WILL CONTINUE TO MONITOR FOR ANY CHANGES. PATIENT DOES NOT WANT TO GET UP. INCONTINENT.
--- NOTE | 2018-06-10 04:58 | NUR ---
SHIFT SUMMARY A/O, REMAINS CONFUSED. ANSWERS QUESTIONS APPROPRIATELY. NO C/O PAIN/DISCOMFORT. REMAINS ON 3L VIA NC; COARSE RESPIRATIONS THROUGHOUT; EQUAL RISE/FALL. NO C/O SOB OR CP. EQUAL RISE/FALL. APPEARED TO REST MOST OF SHIFT. NO ACUTE CHANGE NOTED OVERNIGHT. BED IN LOWEST POSITION. ALARM ON. CALL LIGHT IN REACH. WCTM. REPORT TO ONCOMING RN.
[2018-06-10 06:08] LABS: Anion Gap 4 mmol/L (6-16); Blood Urea Nitrogen 24 mg/dL (8-24); Bun/Creatinine Ratio 60.5 (12.0-20.0); CO2, Blood 33 mmol/L (21-32); Calcium, Blood 8.5 mg/dL (8.5-10.1); Chloride, Blood 91 mmol/L (98-108); Glomerular Filtration Rate >60 (60-); Glucose, Blood 72 mg/dL (70-99); Potassium, Blood 4.8 mmol/L (3.5-5.5); Sodium, Blood 128 mmol/L (136-145)
--- NOTE | 2018-06-10 16:03 | NUR ---
SHIFT SUMMARY PATIENT IS SLOWLY BECOMING A FAILURE TO THRIVE. SHE HAS REFUSED A SHOWER AGAIN TODAY. WE HAVE GOTTEN HER UP FOR MEALS THIS SHIFT WILL ATTEMPT AGAIN AT DINNER. PATIENT STILL STATES THAT SHE HAS MEMORY ISSUES. PATIENT PLEASANT UNTIL TOLD SHE NEEDS TO SHOWER. UNCERTAIN TO WHY. SHE CONTINUES TO REFUSE THIS.
[2018-06-11 05:41] LABS: Anion Gap 5 mmol/L (6-16); Blood Urea Nitrogen 20 mg/dL (8-24); Bun/Creatinine Ratio 43.9 (12.0-20.0); CO2, Blood 32 mmol/L (21-32); Calcium, Blood 8.5 mg/dL (8.5-10.1); Chloride, Blood 91 mmol/L (98-108); Creatinine, Blood 0.46 mg/dL (0.40-1.00); Glomerular Filtration Rate >60 (60-); Glucose, Blood 76 mg/dL (70-99); Potassium, Blood 5.1 mmol/L (3.5-5.5); Sodium, Blood 128 mmol/L (136-145)
--- NOTE | 2018-06-11 05:54 | NUR ---
SHIFT SUMMARY A/O, CONFUSION NOTED AT TIMES. WILL ANSWER QUESTIOS APPROPRIATELY. NO C/O PAIN/DISCOMFORT. REMAINS ON 3L VIA NC @ 95%. NO SOB OR CP NOTED. EQUAL RISE AND FALL. APPEARED TO REST SOME OF SHIFT. CONTINUES WITH INCONTINENT EPISODES. NO ACUTE CHANGES NOTED OVERNIGHT. BED IN LOWEST POSITION. ALARM ON. CALL LIGHT AND BELONGINGS WITHIN REACH. WCTM. REPORT TO ONCOMING RN.
--- NOTE | 2018-06-11 18:26 | NUR ---
SHIFT SUMMARY PATIENT PLEASANT.NO ACUTE CONCERNS AT THIS TIME. STILL PLEASANTLY CONFUSED. CONTINUES TO REFUSE SOME TREATMENTS. ALL BREATHING TREATMENTS ARE PRN AT THIS TIME. PATIENT DOES LET YOU KNOW WHEN SHE FEELS SHE NEEDS THEM.
--- NOTE | 2018-06-12 06:10 | NUR ---
SHIFT SUMMARY A/O, NOTED CONFUSION AT TIMES. ANSWERS QUESTIONS APPROPRIATELY. NO C/O PAIN/DISCOMFORT. REFUSED BEDSIDE COMMODE AND AT TIMES REFUSED CARES; CONTINUES WITH INCONTINENT EPISODES. NO SOB OR CP NOTED. EQUAL RISE AND FALL. COUGH PRODUCTIVE WITH THICK SPUTUM THAT IS YELLOW TINGED. NO ACUTE CHANGES OVERNIGHT. VSS/AFEBRILE. BED IN LOWEST POSITION. ALARM ON. CALL LIGHT AND BELONGINGS WITHIN REACH. WCTM. REPORT TO ONCOMING RN.
--- NOTE | 2018-06-12 17:52 | NUR ---
NO ACUTE CHANGES NOTED THIS SHIFT. PT WAS UP TO CHAIR AT BEDSIDE AND DID WORK WITH PT/OT TODAY. EATING SLIGHTLY BETTER WITH ENCOURAGEMENT. ANTICIPATING DISCHARGE HOME WITH CAREGIVER AND HOME HEALTH TOMORROW. WILL CONTINUE TO MONITOR AND REPORT TO ONCOMING RN.
--- NOTE | 2018-06-13 05:45 | NUR ---
VSS, AFEBRILE, A/O BUT SOME CONFUSION/FORGETFULNESS, 20G R FA, 3L MC, INCONT, FLAT AFFECT, POOR APPETITE, CACHETIC, REFUSING CARE AT TIMES, CRACKLES IN LUNGS, COARSE COUGH, MAY D/C TODAY.
--- NOTE | 2018-06-13 18:41 | NUR ---
PT ALERT AND ORIENTED- FLAT AFFECT, LACKS MOTIVATION. PT HAD DISCHARGE ORDERS, BUT NO CAREGIVERS TO BE WITH PT UNTIL TOMORROW. SOCIAL SERVICE WILL RE-EVAL PT'S DC STATUS BECAUSE PT LIKELY TO REQUIRE MORE HELP THAN CURRENTLY RECIEVING AT HOME. FARSHAD RIVERA IN CASE MANAGEMENT TO FOLLOW 06/14. DR ROSE AGREED TO HOLD DISCHARGE UNTIL FURTHER EVAL TOMORROW. PT 1 SBA TO CHAIR FOR LUNCH AND DINNER. DIDN'T WANT TO GET UP, BUT ASSISTED TO CHAIR FOR MEALS. RESISTANT TO CARE AND LACKS MOTIVATION. FEEDS SELF WITH SET UP. HAD LG SOFT BROWN BM TODAY. CONT O2 2L. LUNGS REMAIN MOIST, HAS A FREQ MOIST, PRODUCTIVE COUGH WITH YELLOW PHLEGM.
--- NOTE | 2018-06-14 04:46 | NUR ---
MEPILEX PLACED TO COCCYX FOR COMFORT.
--- NOTE | 2018-06-14 07:11 | NUR ---
LYING IN HIGH FOWLERS WITH EYES CLOED. AAO X3, CHA, FOLLOWES ALL COMMANDS. NO CHANGES SINCE STAR OF SHIFT. DENIES PAIN, DISCOMFORT, OR FURTHER NEEDS AT THIS TIME. SAFETY MEASURES IN PLACE. WILL GIVE HAND OFF TO ONCOMING SHIFT USING SBAR.
--- NOTE | 2018-06-14 14:05 | NUR ---
Attepted to address advanced care planning again with pt this am. She is again, guarded and not interested in talking about care options or code status. No family present at the time of my visit.
--- NOTE | 2018-06-14 18:29 | NUR ---
DISCHARGE INSTRUCTIONS COMPLETED AND DISCUSSED WITH PT. LEFT A MESSAGE ON FOLDER FOR PTS BROTHER WHO IS SUPPOSED TO BE MEETING PT AT HER HOME TO CALL WITH ANY QUESTIONS ABOUT DISCHARGE PAPERWORK PRIOR TO ME LEAVING FOR THE EVENING. PT ESSENTIALLY SHOOED ME AWAY WHEN ATTEMPTING TO GO OVER PAPERWORK. DID SIGN IT THOUGH. 1 PERSON ASSIST TO W/C. TO [facility] BY [facility] W/C TRANSPORTATION.
== END 2018-06-14 16:28 | disposition home health service (06) | DRG 189 ==
LOC: ER 13:35 → MEDS 15:28 → PCU 15:28 → ERHOLD 15:28 → PCU 19:50 → MEDS 06-05 18:12 → ENPENDDIS 06-13 13:08 → EDPENDDISTM 06-14 11:14 → EDPENDDISDT 06-14 11:14 → MEDS 06-14 16:28
PROVIDERS: Emergency Medicine; Internal Medicine; ADMIT Hospitalist
PROC: 5A09357 Assistance with Respiratory Ventilation, Less than 24 Consecutive Hours, Continuous Positive Airway Pressure (ICD-10-PCS; principal; 2018-05-30)
DX: J96.21 Acute and chronic respiratory failure with hypoxia (principal); J44.1 Chronic obstructive pulmonary disease with (acute) exacerbation; E87.1 Hypo-osmolality and hyponatremia; R64 Cachexia; Z68.1 Body mass index [BMI] 19.9 or less, adult; E86.0 Dehydration; Z86.73 Personal history of transient ischemic attack (TIA), and cerebral infarction without residual deficits; Z99.81 Dependence on supplemental oxygen; F17.210 Nicotine dependence, cigarettes, uncomplicated; F03.90 Unspecified dementia, unspecified severity, without behavioral disturbance, psychotic disturbance, mood disturbance, and anxiety; J96.22 Acute and chronic respiratory failure with hypercapnia; I10 Essential (primary) hypertension
CPT/HCPCS: 36415; 71045; 71046; 80048; 80053; 83735; 83880; 84443; 84484; 85025; 93005; 93010; 94640; 94644; 94660; 94762; 96360; 96361; 96365; 96375; 97110; 97116; 97162; 97166; 97530; 97535; 99285-25; G0515; G8978; G8979; G8987; G8988; J0456; J1100; J1650; J1956; J2930; J7030; J7050

== ENCOUNTER 2018-06-17 09:44 | Emergency (ER) | payer OTHER ==
[~2018-06-17] VITALS: Ht 160 cm; Wt 49.9 kg
[~2018-06-17 09:44] MED LIST changes: +TIOT18 INH
[2018-06-17 10:11] LABS: BASOPHILS ABSOLUTE AUTO 0.02 K/mm3 (0.00-0.23); BASOPHILS PERCENT AUTO 0 % (0-2); EOSINOPHILS ABSOLUTE AUTO 0.11 K/mm3 (0.00-0.68); EOSINOPHILS PERCENT AUTO 1 % (0-6); Hematocrit 42.2 % (33.0-51.0); Hemoglobin 13.8 g/dL (11.5-16.0); IMMATURE GRAN ABSOLUTE AUTO 0.03 K/mm3 (0.00-0.10); IMMATURE GRAN PERCENT AUTO 0 % (0-1); LYMPHOCYTES ABSOLUTE AUTO 1.95 K/mm3 (0.84-5.20); LYMPHOCYTES PERCENT AUTO 18 % (21-46); MONOCYTES ABSOLUTE AUTO 0.57 K/mm3 (0.16-1.47); MONOCYTES PERCENT AUTO 5 % (4-13); Mean Corpuscular HGB 28.6 pg (26.0-34.0); Mean Corpuscular HGB Conc 32.7 g/dL (31.5-36.5); Mean Corpuscular Volume 87 fL (80-100); Mean Platelet Volume 9.1 fL (9.1-12.4); NEUTROPHILS ABSOLUTE AUTO 8.34 K/mm3 (1.96-9.15); NEUTROPHILS PERCENT AUTO 76 % (41-73); Platelet Count 190 K/mm3 (150-400); RDW Coefficient Variation 14.6 % (11.7-14.2); RDW Standard Deviation 46.3 fL (35.1-46.3); Red Blood Cell Count 4.83 M/mm3 (3.80-5.20); White Blood Cell Count 11.02 K/mm3 (4.00-11.30)
[2018-06-17 10:34] LABS: Alanine Aminotransfer (ALT/SGP 20 U/L (12-78); Albumin/Globulin Ratio 0.8 (0.8-1.8); Alk Phos 87 U/L (50-136); Anion Gap 5 mmol/L (6-16); Aspartate Aminotrans (AST/SGOT 21 U/L (12-37); Bilirubin, Total 0.8 mg/dL (0.1-1.0); Blood Urea Nitrogen 11 mg/dL (8-24); Bun/Creatinine Ratio 34.3 (12.0-20.0); CO2, Blood 30 mmol/L (21-32); Calcium, Blood 8.1 mg/dL (8.5-10.1); Chloride, Blood 97 mmol/L (98-108); Creatinine, Blood 0.32 mg/dL (0.40-1.00); Globulin, Blood 3.9 g/dL (2.2-4.0); Glomerular Filtration Rate >60 (60-); Glucose, Blood 87 mg/dL (70-99); Potassium, Blood 3.9 mmol/L (3.5-5.5); Sodium, Blood 132 mmol/L (136-145); Total Protein, Blood 6.9 g/dL (6.4-8.2)
--- NOTE | 2018-06-17 12:30 | NUR ---
INITIAL [facility] VISIT: ER #[id number] Upon arrival to pt's room, Dr discussing pt's wishes and POLST form with pt. I offered to do new POLST with pt because she is unable to remember what her old one says or where it is. We do not have one on file. I reviewed her visits with two Drs this am to confirm her wishes. She reiterated that she does not want to be admitted or placed anywhere but home. She understands that she is failing and she states she does not want treatment of any kind for her severe COPD other than s/s management and comfort measures. We reviewed some possible options and she declined. She is not currently having an exacerbation but appears to be at her baseline of doing very poorly with respect to ability with ADLs, weakness, poor activity tolerance and frail health status r/t to her long standing and severe COPD/chronic resp failure. Pt is cachectic, dry appearing. She has O2 on via nc and is dyspnic at rest w/conversation. She uses O2 via nc / in her home and has it set up. She can tell me where she is and her brother's phone number. She states she does not have any children and that her brother Kranthi would be her surrogate decision maker if she could not speak for herself. She does want to complete a POLST, which we did. Completed form was signed by ER DR and faxed to medical records with the origianl given to her to take home. She was instructed to put it on her refrigerator or the back of her front door where EMS personnel would be able to find it if they were called to her home. POLST was also faxed later to [facility] with a Hospice referral. Alix does not want CPR or any resuscitative measures taken, no artificial nutrition/hydration desired. She wants comfort measures, s/s management only. She was referred to [facility] on d/c from hospital two days ago and she has approx 30 hours/week of cg per CM notes earlier this week. She cannot remember which agency she was referred to but believes it is [facility]. I tried to reach brother, Kranthi, by phone and left a message for him to call. ER staff called another personal service representative listed on face sheet to give update and request ride home. Transportation home will be arranged by ER staff if no family are available. I contacted GYPSY Simmons at [facility] and verified that pt had contact by phone with [facility] yesterday but no visit/admission to services had occured yet. I requested Hospice eval at pt's home [facility] and faxed all pertinent info from previous admission and today's ER visit. Iris states it will probably be Tuesday before an RN can visit and I passed this on to ER staff to relay to pt/family. I requested [employer]PER[employer] and [employer] services [facility]. Pt will need more than her 30 hrs of cg in the home and she needs [employer] for personal hygiene and care. She smelled strongly of urine. Pt was very appreciative of efforts to get her home. She appears very fatigued but calm and comfortable. She seemed relieved to get POLST completed also. She is forgetful but alert and oriented at the time of my visit.
== END 2018-06-17 14:31 | disposition home or self-care (01) ==
LOC: ER 09:44
PROVIDERS: Emergency Medicine
DX: J44.9 Chronic obstructive pulmonary disease, unspecified (principal); R62.7 Adult failure to thrive; I10 Essential (primary) hypertension; F17.210 Nicotine dependence, cigarettes, uncomplicated; Z79.82 Long term (current) use of aspirin; Z79.899 Other long term (current) drug therapy; Z88.0 Allergy status to penicillin; Z88.2 Allergy status to sulfonamides; Z86.73 Personal history of transient ischemic attack (TIA), and cerebral infarction without residual deficits; Z79.51 Long term (current) use of inhaled steroids
CPT/HCPCS: 71045; 80053; 85025; 93005; 93010; 94640; 96374; 99285-25; J2930